=== PATIENT | female | born 1960 | race Caucasian/White ===

== ENCOUNTER → 2021-06-22 | Outpatient (CLI) | payer OTHER ==
--- NOTE | 2021-06-22 08:13 | CT ---
EXAMINATION TYPE: CT sinus wo con DATE OF EXAM: 06/22/2021 COMPARISON: NONE HISTORY: Chronic Sinusitis per order. CT DLP: 553 mGycm. Automated Exposure Control for Dose Reduction was Utilized. TECHNIQUE: CT scan of the sinuses is performed without contrast, axial images are obtained, coronal r eformatted images are also reviewed. FINDINGS: There is 2.1 cm mucous retention cyst or polyp in the posterior inferior left maxillary sin us. Remainder paranasal sinuses clear without suspicious opacification or air-fluid levels The ostio meatal complex is patent bilaterally on coronal image 30. Nasal septum slightly deviated to left of m idline. Visualized portion of mastoid air cells show no abnormal opacification. The globes are intact bilate rally. IMPRESSION: Chronic left maxillary sinus disease. No acute paranasal sinusitis currently.
== END | disposition home or self-care (01) ==
LOC: RADCTMAIN 07:46
PROVIDERS: ATTEND Otolaryngology
DX: J32.0 Chronic maxillary sinusitis (principal)
CPT/HCPCS: 70486

== ENCOUNTER → 2021-07-21 | Outpatient (CLI) | payer OTHER ==
--- NOTE | 2021-07-24 10:28 | MM ---
Reason for exam: screening (asymptomatic). Last mammogram was performed 9 years and 9 months ago. History: Patient has history of other cancer at age 59. Reductions of both breasts, 2008. Physical Findings: A clinical breast exam by your physician is recommended on an annual basis and results should be correlated with mammographic findings. MG 3D Screening Mammo W/Cad Bilateral CC and MLO view(s) were taken. Prior study comparison: June 02, 2020, mammogram, performed at [facility]. April 16, 2019, mammogram, performed at [facility]. October 31, 2011, CAD bilateral diagnostic mammogram. April 24, 2011, left diagnostic mammogram w/CAD. The breast tissue is heterogeneously dense. This may lower the sensitivity of mammography. There is no discrete abnormality. No significant changes when compared with prior studies. ASSESSMENT: Negative, BI-RAD 1 RECOMMENDATION: Routine screening mammogram of both breasts in 1 year.
== END | disposition home or self-care (01) ==
LOC: RADMAMWWP 14:41
PROVIDERS: ATTEND Obstetrics & Gynecology
DX: Z12.31 Encounter for screening mammogram for malignant neoplasm of breast (principal); Z85.9 Personal history of malignant neoplasm, unspecified
CPT/HCPCS: 77063; 77067

== ENCOUNTER → 2022-08-13 | Outpatient (CLI) | payer OTHER ==
--- NOTE | 2022-08-13 09:03 | MM ---
Reason for Exam: Screening (asymptomatic). Last mammogram was performed 1 year(s) and 1 month(s) ago. Patient History: Menarche at age 18. First Full-Term at age 22. Postmenopausal. Other cancer, age 59. 2008, Bilateral Reduction. Risk Values: Giovana 5 year model risk: 1.2%. NCI Lifetime model risk: 6.0%. Prior Study Comparison: 04/16/2019 Screening Mammogram, [facility]. 06/02/2020 Screening Mammogram, [facility]. 07/21/2021 Bilateral Screening Mammogram, [facility]. Tissue Density: There are scattered fibroglandular densities. Findings: Analyzed By CAD. A few small scattered round calcifications bilaterally are redemonstrated. There is no suspicious group of microcalcifications or new suspicious mass in either breast. Overall Assessment: Benign, BI-RAD 2 Management: Screening Mammogram of both breasts in 1 year. A clinical breast exam by your physician is recommended on an annual basis and results should be correlated with mammographic findings. Electronically signed and approved by: Brandt Miller M.D.
== END | disposition home or self-care (01) ==
LOC: RADMAMWWP 07:17
PROVIDERS: ATTEND Obstetrics & Gynecology
DX: Z12.31 Encounter for screening mammogram for malignant neoplasm of breast (principal)
CPT/HCPCS: 77067

== ENCOUNTER → 2023-04-09 | Outpatient (CLI) | payer OTHER ==
--- NOTE | 2023-04-09 09:33 | US ---
EXAMINATION TYPE: US abdomen complete DATE OF EXAM: 04/09/2023 COMPARISON: NONE CLINICAL INDICATION: Female, 62 years old with history of R10.9 Abdominal pain; pain elevated labs. TECHNIQUE: Multiple sonographic images of the abdomen are obtained. FINDINGS: EXAM MEASUREMENTS: Liver Length: 14.6 cm Gallbladder Wall: 0.2 cm CBD: 0.9 cm Spleen: 8.8 cm Right Kidney: 9.8 x 4.0 x 4.3 cm Left Kidney: 12 x 4.4 x 3.2 cm Pancreas: Tail obscured by overlying bowel gas Liver: wnl Gallbladder: No stones seen Evidence for sonographic Barron's sign: No CBD: dilated Spleen: wnl Right Kidney: No hydronephrosis or masses seen Left Kidney: No hydronephrosis or masses seen Upper IVC: wnl Abd Aorta: wnl The liver is homogenous. The intrahepatic portion of the IVC and proximal abdominal aorta are within normal limits. There is no evidence of cholelithiasis. Common bile duct is dilated. The visualized portions of the pancreas are homogenous. The spleen is unremarkable. Kidneys are symmetric and thierry e of hydronephrosis. No renal lesions are seen. IMPRESSION: Common bile duct dilation more than expected for patient of this age. This can be further evaluated w ith MRCP as clinically warranted.
[2023-04-09 09:48] LABS: Basophils # (A) 0.1 k/uL (0-0.2); Basophils % (A) 1 %; Eosinophils # (A) 0.1 k/uL (0-0.7); Eosinophils % (A) 1 %; HCT 43.7 % (34.0-46.0); HGB 14.5 gm/dL (11.4-16.0); Lymphocytes % (A) 20 %; MCH 29.9 pg (25.0-35.0); MCHC 33.2 g/dL (31.0-37.0); MCV 90.2 fL (80.0-100.0); Mean Platelet Volume 8.5; Monocytes # (A) 0.4 k/uL (0-1.0); Monocytes % (A) 4 %; Neutrophils # (A) 7.2 k/uL (1.3-7.7); Neutrophils % (A) 72 %; Platelet Count 235 k/uL (150-450); RBC 4.84 m/uL (3.80-5.40); RDW 12.4 % (11.5-15.5)
[2023-04-09 09:52] LABS: ALT 19 U/L (4-34); AST 22 U/L (14-36); African American GFR (CKD) 81 (>60 ml/min/1.73 sqM); Albumin 4.3 g/dL (3.5-5.0); Albumin/Globulin Ratio 1.7; Alkaline Phosphatase 81 U/L (38-126); Amylase 73 U/L (30-110); Anion Gap 7 mmol/L; Blood Urea Nitrogen 12 mg/dL (7-17); Calcium 9.3 mg/dL (8.4-10.2); Carbon Dioxide 29 mmol/L (22-30); Chloride 100 mmol/L (98-107); Globulin 2.6 g/dL; Glucose 105 mg/dL (74-99); Lipase 93 U/L (23-300); Non-African American GFR(CKD) 70 (>60 ml/min/1.73 sqM); Potassium 3.8 mmol/L (3.5-5.1); Sodium 136 mmol/L (137-145); Total Bilirubin 0.5 mg/dL (0.2-1.3); Total Protein 6.9 g/dL (6.3-8.2)
[2023-04-09 10:06] LABS: T4, Free (Free Thyroxine) 1.63 ng/dL (0.78-2.19)
[2023-04-09 22:55] LABS: Chol/HDL Ratio 3.13 Ratio; LDL Cholesterol,Calculated 87.7 mg/dL (0.0-131.0)
== END | disposition home or self-care (01) ==
LOC: RADUSWWP 08:40
PROVIDERS: ATTEND Internal Medicine Geriatric Medicine
DX: K83.8 Other specified diseases of biliary tract (principal); E78.5 Hyperlipidemia, unspecified; R73.9 Hyperglycemia, unspecified; E03.9 Hypothyroidism, unspecified; R10.9 Unspecified abdominal pain
CPT/HCPCS: 36415; 76700; 80053; 80061; 82150; 83036; 83690; 84439; 84443; 85025

== ENCOUNTER → 2023-04-11 | Outpatient (CLI) | payer OTHER ==
--- NOTE | 2023-04-11 14:33 | CT ---
EXAMINATION TYPE: CT abdomen pelvis w con DATE OF EXAM: 04/11/2023 COMPARISON: NONE HISTORY: 62-year-old female R1 0.9, Right sided abdominal pain TECHNIQUE: Contiguous axial scanning of the abdomen and pelvis following administration of 100 ml Omn ipaque 300 IV contrast. Delayed images through the kidneys and coronal/sagittal reconstructions perf ormed. CT DLP: 1086 mGycm Automated exposure control for dose reduction was used. FINDINGS: Heart normal size. Lung bases clear without pleural effusion. Mild pectus excavatum deformity. No focal liver lesion. Portal venous system is patent. Bile duct mildly dilated at 9 mm with normal d istal tapering abnormal gallbladder distention. Adrenal glands, kidneys, spleen, and pancreas within normal limits. Kidneys show bilateral extrarenal pelves. Moderate fold thickening especially along the mid to distal gastric body, axial image 27 and coronal image 21. No dilated small bowel, free fluid, or free air. No mesenteric or retroperitoneal lymphadenopathy. High riding cecum. Normal appendix visualized. Oral contrast progressed to the junction of the descen ding and sigmoid colon. Only mild scattered stool is present. Mild mid sigmoid diverticulosis. No per icolonic inflammatory change. There is a round lesion measuring 1.4 cm on the right lateral aspect of the mid sigmoid colon that sh ows central fat density, no surrounding fat stranding. Likely chronic postinflammatory sequela. Bladder is urine distended. Numerous pelvic ligaments. Uterus anteverted. There is a right fundal sakina cified fibroid measuring 2.8 cm and a left posterior uterine body subserosal fibroid measuring 1.8 cm . Both ovaries are visualized. No abnormal fluid collection in the pelvis or pelvic lymphadenopathy. Bones: Mild degenerative change of both hips. No osseous destructive process. IMPRESSION: 1. MODERATE IRREGULAR THICKENING ALONG THE MID TO DISTAL GASTRIC BODY COULD REFLECT FOCAL GASTRITIS, PEPTIC ULCER DISEASE, OR UNDERLYING NEOPLASM. CORRELATE WITH PATIENT'S SYMPTOMS AND DIRECT VISUALIZAT ION. 2. MILDLY DILATED BILE DUCT AT 9 MM [address] WITH NORMAL DISTAL TAPERING AND NO ABNORMAL GALLBLADDER DI STENTION. FINDINGS ARE PROBABLY CHRONIC FOR THE PATIENT. CORRELATE WITH ALKALINE PHOSPHATASE AND BILI OTT LEVELS. 3. MILD MID SIGMOID DIVERTICULOSIS WITHOUT ACUTE DIVERTICULITIS. 4. FIBROID UTERUS.
== END | disposition home or self-care (01) ==
LOC: RADCTMAIN 12:22
PROVIDERS: ATTEND Internal Medicine Geriatric Medicine
DX: D25.2 Subserosal leiomyoma of uterus (principal); K63.89 Other specified diseases of intestine; K57.30 Diverticulosis of large intestine without perforation or abscess without bleeding; K83.8 Other specified diseases of biliary tract
CPT/HCPCS: 74177; Q9967

== ENCOUNTER → 2023-08-30 | Outpatient (CLI) | payer OTHER ==
--- NOTE | 2023-08-30 12:19 | BD ---
EXAMINATION TYPE: Axial Bone Density DATE OF EXAM: 08/30/2023 CLINICAL HISTORY: 63 years old Female. ICD-10 CODE: Z78.0 POST MENOPAUSAL WITHOUT HRT Height: 66.25 Weight: 153.1 FRAX RISK QUESTIONS: Alcohol (3 or more units per day): no Family History (Parent hip fracture): no Glucocorticoids (More than 3mos): no History of Fracture in Adulthood: no Secondary Osteoporosis: 1. Type 1 Diabetes: no 2. Hyperthyroidism: no 3. Menopause before 45: no 4. Malnutrition: no 5. Chronic liver disease: no Rheumatoid Arthritis: no Current Tobacco Use: yes RISK FACTORS HISTORY OF: Hip Fracture (Right/Left): no Spine Fracture: no History of Wrist Fracture: no Surgery to Spine/Hip(right/left)/Wrist (right/left): no Family History of Osteoporosis: no Active: yes Diet low in dairy products/other sources of calcium: no Postmenopausal woman: yes Take estrogen and/or progesterone medications: no Lost more than 2 inches in height since high school: no Frequent falls: no Poor Health: no Hyperparathyroidism: no Adrenal Insufficiency: no MEDICATIONS: Prednisone or other steroids: no Thyroid Medications: Levothyroxine How Long: Past 5 years Osteoporosis Medications: no Additional Medications: Cholesterol Meds, Fish oil, Additional History: EXAM MEASUREMENTS: Bone mineral densitometry was performed using the Desti System. Bone mineral density as measured about the Lumbar spine is: ----- L1-L4(G/cm2): 1.056 T Score Values are as follows: ----- L1: -0.9 ----- L2: -1.4 ----- L3: -0.7 ----- L4: -1.3 ----- L1-L4: -1.0 Z Score Values are as follows: ----- L1: 0.2 ----- L2: -0.3 ----- L3: 0.5 ----- L4: -01 ----- L1-L4: 0.1 Baseline Study Bone mineral density about the R hip (g/cm2): 0.829 Bone mineral density about the L hip (g/cm2): 0.835 T Score values are as follows: -----R Neck: -1.7 -----L Neck: -1.9 -----R Total: -1.4 -----L Total: -1.4 Z Score values are as follows: -----R Neck: -0.5 -----L Neck: -0.7 -----R Total: -0.5 -----L Total: -0.5 Baseline Study FRAX%s: The graph provided illustrates a 9.9% chance for a major osteoporotic fx and a 2.0% chance fo r the hips probability for fx in 10 years time. IMPRESSION: Osteopenia (T Score between -2.5 and -1). There is slightly increased risk of fracture and the patient may be considered for treatment. Re-Screen 2-5 years. NOTE: T-SCORE=SD OF THE YOUNG ADULT MEAN.
--- NOTE | 2023-09-02 08:37 | MM ---
Reason for Exam: Screening (asymptomatic). Last screening mammogram was performed 12 month(s) ago. Patient History: Menarche at age 18. First Full-Term at age 22. Postmenopausal. Other cancer, age 59. 2008, Bilateral Reduction. Risk Values: Giovana 5 year model risk: 1.2%. NCI Lifetime model risk: 5.8%. Prior Study Comparison: 06/02/2020 Screening Mammogram, [facility]. 07/21/2021 Bilateral Screening Mammogram, [facility]. 08/13/2022 Bilateral MG screening mammo w CAD, [facility]. Tissue Density: There are scattered fibroglandular densities. Findings: Analyzed By CAD. There is no suspicious group of microcalcifications or new suspicious mass. Overall Assessment: Negative, BI-RAD 1 Management: Screening Mammogram of both breasts in [address] [facility] will attempt to contact patient to return for supplemental views and ultrasound if indicated. Patient should continue monthly self-breast exams. A clinical breast exam by your physician is recommended on an annual basis. This exam should not preclude additional follow-up of suspicious palpable abnormalities. Note on Giovana scores and lifetime risk: 1. A Giovana score greater than 3% is considered moderate risk. If this is the case, consider specialist referral to assess eligibility for a risk reducing agent. 2. If overall lifetime risk for the development of breast cancer is 20% or higher, the patient may qualify for future screening with alternating mammogram and breast MRI. Electronically signed and approved by: Lalito Michelle DO
== END | disposition home or self-care (01) ==
LOC: RADMAMWWP 08:23
PROVIDERS: ATTEND Obstetrics & Gynecology
DX: Z12.31 Encounter for screening mammogram for malignant neoplasm of breast (principal); M85.89 Other specified disorders of bone density and structure, multiple sites; Z78.0 Asymptomatic menopausal state
CPT/HCPCS: 77063; 77067; 77080

== ENCOUNTER 2023-09-18 08:22 | Day surgery (SDC) | payer OTHER ==
--- NOTE | 2023-09-16 09:12 | P.HPOR ---
History of Present Illness H&P Date: 09/16/23 Subjective: This is a 63 year old female that presents today for initial evaluation regarding a right small finger contracture. She first noticed the finger started to flex around 10 years ago. She states she did jam the finger around 6 years ago but is unsure if it is related. She denies any pain and is able to make a full fist but is unable to fully straighten the finger or lay her hand flat on a flat surface. She denies any numbness. Physical Examination: RUE: AIN/PIN/Radial/Ulnar/Median motor intact. Radial/Ulnar/Median SILT. 2+/4 Radial/Ulnar pulses palpated. 5/5 APB, 5/5 FDI. Negative Finkelsteins, negative CMC grind, negative Durkan's compression. Right small finger PIP contracture. RSF PIP contracture of 45 degrees with palpable chord from MCP joint crease to PIP joint crease. Pre-tendinous dupuytren's chords present in palm of hand that do not extend to digits. Imaging: X-Rays of the right hand 3v taken in office today demonstrate no osseous abnormality. Impression: 1.) Right small finger Dupuytren's disease Plan: Diagnosis and treatment options were discussed with the patient. We discussed continued observation vs xiaflex vs palmar fasciectomy. She would like to think her options over more at home and will contact the office with her decision on treatment. The patient was agreeable with this plan. Follow up: PRN CC: Malcom Chacon MD -Pierce Luis DO Orthopedic Hand/Upper Extremity Surgeon Past Medical History Past Medical History: Cancer, Hyperlipidemia, Thyroid Disorder Additional Past Medical History / Comment(s): skin cancer, History of Any Multi-Drug Resistant Organisms: None Reported Past Surgical History: Breast Surgery Additional Past Surgical History / Comment(s): breast reduction, abdominoplasty Past Anesthesia/Blood Transfusion Reactions: No Reported Reaction Smoking Status: Current every day smoker - Past Family History Father Family Medical History: Cancer Additional Family Medical History / Comment(s): colon Medications and Allergies Home Medications Medication Instructions Recorded Confirmed Type Levothyroxine Sodium [Synthroid] 50 mcg PO DAILY 09/13/23 09/13/23 History Rosuvastatin [Crestor] 10 mg PO DAILY 09/13/23 09/13/23 History Allergies Allergy/AdvReac Type Severity Reaction Status Date / Time No Known Allergies Allergy Verified 09/13/23 14:52 Physical Examination Osteopathic Statement: *. No significant issues noted on an osteopathic structural exam other than those noted in the History and Physical/Consult.
[~2023-09-18 08:22] MED LIST: DEXAMETHASONE SOD PHOSPHATE 4 MG/ML 1 ML VIAL IV ONE; HYDROmorphone 0.5 MG/0.5 ML SYRINGE IVP PRN; LACTATED RINGERS 1,000 ML IV SCH; LIDOCAINE 1% (10MG/ML) FOR IV START INTRADERMA PRN; ONDANSETRON 4 MG/2 ML VIAL IVP ONE; Pre Op ABX Message 1 EACH MISC MISCELLANE ONE; droPERidol 5 MG/2 ML VIAL IVP ONE
[2023-09-18] MEDS ORDERED: LACTATED RINGERS 1,000 ML IV ONE (09:10)
[2023-09-18] MEDS ORDERED: fentaNYL (PF) 50 MCG/ML 2 ML AMP ONE (09:53)
[2023-09-18] MEDS ORDERED: MIDAZOLAM 2 MG/2 ML VIAL ONE (09:53)
[2023-09-18] MEDS ORDERED: LIDOCAINE 1% INJ 10MG/ML (20 ML MDV) ONE (09:53)
[2023-09-18] MEDS ORDERED: KETOROLAC 15 MG/ML 1 ML VIAL ONE (09:53)
[2023-09-18] MEDS ORDERED: PROPOFOL 10 MG/ML 20 ML VIAL IV ONE (09:53)
[2023-09-18] MEDS ORDERED: BUPIVACAINE (PF) 0.5% 30 ML VIAL SQ ONE ×2 (09:53→10:59)
[2023-09-18 11:30] VITALS: RESP 16; TEMP 97
--- NOTE | 2023-09-18 11:52 | P.OP ---
Date of Procedure: 09/18/23 Preoperative Diagnosis: 1.) Right small finger Dupuytrens contracture Postoperative Diagnosis: 1.) Right small finger Dupuytrens contracture Procedure(s) Performed: 1.) Right small finger Dupuytrens palmar fasciectomy Anesthesia: JUANA Surgeon: Pierce Luis Cutter Operator #1: Manuel Das Estimated Blood Loss (ml): 0 Pathology: none sent Condition: stable Disposition: PACU Description of Procedure: This is a 63 year old female who presents today for surgical intervention for a right small finger Dupuytren's contracture that has failed conservative treatment. Risks and benefits of surgery were discussed with the patient including bleeding, damage to surrounding tissue, infection, recurrence, need for further surgery as well as risks of anesthesia including pulmonary embolism and even and the patient wished to proceed with surgical intervention. The patient was seen in the pre-operative area by myself. Consent and H&P were completed and updated. The correct extremity was marked in the pre-operative area by myself and all other questions were answered. Operative Narrative: The patient was brought to the operating room by the department of anesthesia. They remained on the portable stretcher and a rolling hand table was brought to the side of the operative extremity. Pre-operative time out was performed indicating the correct patient, procedure and laterality. All in the room agreed. Pre-operative antibiotics were given prior to skin incision. The patient was then drifted off to sleep by the department of anesthesia. A nonsterile tourniquet was then applied to the operative extremity and the right upper extremity was then prepped and draped in normal sterile fashion. The operative extremity was the exsanguinated with an esmarch bandage and the tourniquet was inflated to 250mmHg. 15 blade scalpel was then used to make an incision in a Fredo type fashion on the volar surface of the right small finger Dupuytren's cord from the level of the mid palm to the level of the DIP joint crease. Blunt dissection was taken down to reveal the thickened Dupuytrens chord originating from the palmar fascia. Neurovascular bundles were identified and protected and blunt tenotomy scissors and combination of 15 blade scalpel were used to separate the pathologic fascial tissues from surrounding structures. The thick fascial tissue was well dissected out from deep and superficial tissues and released from its proximal attachment and then released in a proximal to distal fashion. The patient had bilateral spiral chords present with each digital nerve wrapped completely around the cord, this was carefully dissected out and dupuytrens tissue was removed leaving the digital neurovascular bundle intact. After excision at the distal portion attachment at the level of the PIP joint crease the finger was able to be fully extended but a DIP flexion contracture remained. Further dissection was performed near the DIP joint and a retrovasicular cord was identified on the radial aspect of the DIP joint, this was excised and full extension of the PIPJ and DIPJ was now able to be achieved. The wound was then irrigated and skin closure was performed with 4-0 nylon sutures. 8cc's total of 0.5% bupivicaine was injected to perform digital blocks of the small finger. Large bulky soft dressing with fluffs, adaptic, bacitracin, cast padding and mechelle wrap was applied. Tourniquet was let down and all digits had immediate perfusion. The patient was then woken by the department of anesthesia and transferred to PACU in stable condition. Manuel TRENT was present for the case in its entirety to assist in dockery portions of the case and protection of vital neurovascular structures. Pierce Luis D.O. Orthopedic Hand/Upper Extremity Surgeon
[2023-09-18 12:47] VITALS: PULSE 72
[2023-09-18 13:12] VITALS: BP 106/63
== END 2023-09-18 13:18 | disposition home or self-care (01) ==
LOC: OR 08:22
PROVIDERS: ATTEND Orthopaedic Surgery Hand Surgery
DX: M72.0 Palmar fascial fibromatosis [Dupuytren] (principal); E78.5 Hyperlipidemia, unspecified; E07.9 Disorder of thyroid, unspecified; F17.210 Nicotine dependence, cigarettes, uncomplicated; Z80.0 Family history of malignant neoplasm of digestive organs; Z79.890 Hormone replacement therapy; Z79.02 Long term (current) use of antithrombotics/antiplatelets; Z79.899 Other long term (current) drug therapy; Z85.828 Personal history of other malignant neoplasm of skin; Z98.890 Other specified postprocedural states
CPT/HCPCS: 26123; 26125; J2250; J1100; J2405; J2001; J3010; J1885; J2704; J0665

== ENCOUNTER → 2024-01-03 | Outpatient (CLI) | payer OTHER ==
--- NOTE | 2024-01-03 20:38 | XR ---
EXAMINATION TYPE: XR Hip RT and AP Pelvis DATE OF EXAM: 01/03/2024 1:18 PM CLINICAL INDICATION:Female, 63 years old with history of M79.604 PAIN IN RIGHT LEG M25.551 PAIN IN RI GHT HI; PH[facility] COMPARISON: None. TECHNIQUE: XR Hip RT and AP Pelvis; hip was examined in the frontal and lateral projections and a AP pelvis. FINDINGS: No evidence for acute process, joint dislocation or significant soft tissue swelling. Osteo phyte formation of the superior acetabulum of the hip. Suspected fibroid changes in the pelvis. Scatt ered pelvic phleboliths. IMPRESSION: 1. No evidence for acute process. 2. Mild hip osteoarthrosis.
== END | disposition home or self-care (01) ==
LOC: RADXRMAIN 12:47
PROVIDERS: ATTEND Internal Medicine Geriatric Medicine
DX: M16.11 Unilateral primary osteoarthritis, right hip (principal); M79.604 Pain in right leg
CPT/HCPCS: 73502

== ENCOUNTER → 2024-05-18 | Outpatient (CLI) | payer OTHER ==
--- NOTE | 2024-05-25 12:27 | MR ---
EXAMINATION TYPE: MR shoulder LT wo con DATE OF EXAM: 05/18/2024 COMPARISON: Left shoulder radiographs 05/05/2024 HISTORY: Left shoulder pain with difficulty to raise arm x8 months TECHNIQUE: Multiplanar, multisequence imaging of the left shoulder is performed without contrast. FINDINGS: SUPRASPINATUS: Intact. INFRASPINATUS: Intact. SUBSCAPULARIS: Intact. TERES MINOR: Intact. BICEPS: Intact. Normal signal. Normal anchor in the supraglenoid tubercle. Extra-articular portion is appropriately positioned within the bicipital groove. GLENOHUMERAL JOINT: Normal alignment and joint space. Normal cartilage. No effusion. ACROMIOCLAVICULAR JOINT: Mild degenerative subchondral cystic changes in the tip of the clavicle and acromion. Normal subacromial space. No effusion. LABRUM: Normal, given the limitations of a non-arthrographic exam. SUBDELTOID BURSA: Normal. No increased fluid. MUSCLES: Normal. BONE MARROW: Normal. OTHER: Indistinctness of the coracohumeral ligament with edema in the rotator interval. The inferior glenohumeral ligament is thickened and increased in signal. IMPRESSION: 1. Mild osteoarthrosis of the AC joint. 2. Findings in the rotator interval and the IGHL which can be seen with adhesive capsulitis.
== END | disposition home or self-care (01) ==
LOC: RADMRIMAIN 13:46
PROVIDERS: ATTEND Orthopaedic Surgery
DX: M19.012 Primary osteoarthritis, left shoulder (principal)

== ENCOUNTER → 2024-09-03 | Outpatient (CLI) | payer OTHER ==
--- NOTE | 2024-09-04 19:58 | MM ---
Reason for Exam: Screening (asymptomatic). Last screening mammogram was performed 12 month(s) ago. Patient History: Menarche at age 18. First Full-Term at age 22. Postmenopausal. Other cancer, age 59. 2008, Bilateral Reduction. Risk Values: Giovana 5 year model risk: 1.2%. NCI Lifetime model risk: 5.7%. Prior Study Comparison: 07/21/2021 Bilateral Screening Mammogram, [facility]. 08/13/2022 Bilateral MG screening mammo w CAD, [facility]. 08/30/2023 Bilateral MG 3D screening mammo w/cad, [facility]. Tissue Density: There are scattered areas of fibroglandular density. Findings: Analyzed By CAD. There is no suspicious group of microcalcifications or new suspicious mass in either breast. Overall Assessment: Negative, BI-RAD 1 Management: Screening Mammogram of both breasts in 1 year. . Patient should continue monthly self-breast exams. A clinical breast exam by your physician is recommended on an annual basis. This exam should not preclude additional follow-up of suspicious palpable abnormalities. Note on Giovana scores and lifetime risk: 1. A Giovana score greater than 3% is considered moderate risk. If this is the case, consider specialist referral to assess eligibility for a risk reducing agent. 2. If overall lifetime risk for the development of breast cancer is 20% or higher, the patient may qualify for future screening with alternating mammogram and breast MRI. [facility], , 09/04/2024 7:55 PM. Electronically signed and approved by: Araseli Oneill M.D. Radiologist
== END | disposition home or self-care (01) ==
LOC: RADMAMWWP 08:14
PROVIDERS: ATTEND Obstetrics & Gynecology
CPT/HCPCS: 77063; 77067